=== PATIENT | female | born 1980 | race Caucasian/White ===

== ENCOUNTER 2023-12-10 13:36 | Emergency (ER) | payer MEDICARE, BC, MEDICAID, SELFPAY ==
[2023-12-10] VITALS (47 sets, daily range): BP systolic 76–101; BP diastolic 42–72; PULSE 107–119; RESP 22; TEMP 38.1–38.2; O2SAT 64–92; BMI 31.8
--- NOTE | 2023-12-10 14:09 | XR_ITS ---
Patient: VELVET ROY Facility:?[facility] Patient ID:?[id number] Site Patient ID:?[id number]. Site :?1980 Study:?XRay-Chest 1V-12/10/2023 2:51:51 PM Ordering Physician:?DR. MALLOY Final Report: INDICATION: Cough. COMPARISON: None available. TECHNIQUE: 1 view. FINDINGS: AP portable chest radiograph at 1443 hours. Lordotic positioning Medical Devices: Sternotomy wires. Metallic density medical transcription overlying the left atrium. Left-sided single lead subcutaneous implanted cardioverter- defibrillator. The tip of the lead overlies the superior vena cava Lung Volumes: Adequate inspiration. No significant atelectasis. Lungs: Bilateral asymmetrical, more extensive on the right compared to the left, perihilar airspace opacities. Pleura and Pleural spaces: No significant pleural effusion. No pneumothorax. Mediastinum: AP portable technique exaggerates the transverse dimension of the cardiac silhouette. Cardiomegaly is not excluded. Bony Thorax and Soft Tissues: No significant incidental findings. IMPRESSION: Bilateral asymmetrical, more extensive on the right compared to the left, perihilar airspace opacities. Differential diagnostic considerations include pneumonia in the correct clinical setting. Radiographic follow-up to document clearing is recommended in 6-8 weeks. Dictated by Hema Blount MD @ 12/10/2023 3:03:19 PM Signed by:?Hema Blount MD @12/10/2023 3:03:19 PM (Electronic Signature)
--- NOTE | 2023-12-10 14:12 | ED.GENADULT ---
HPI - General Adult General Chief complaint: Cough Stated complaint: oxygen levels low, cough Time Seen by Provider: 12/10/23 13:54 History of Present Illness HPI narrative: This 43-year-old female comes in with her father. She has down syndrome and does have a implantable cardiac defibrillator. She returned from [place] with her father a couple days ago and developed cough 2 days ago. She was noted to have a fever yesterday of 100.8? F. She does use CPAP and oxygen at night. She had a coughing fit last night and now has ecchymosis around her right eye. She is on warfarin and does not report any injury event. Her father thinks that it may have been something related to coughing with the CPAP machine in place. She arrives here with tachycardia, borderline fever, and hypoxia with oximetry around 70% on room air. She has cyanosis in her extremities but is functioning rather well despite this oximetry. Her father states that she does get peripheral cyanosis at times. She normally has oximetry in the mid 90s% but does use oxygen with her CPAP night. Related Data Home Medications Medication Instructions Recorded Confirmed ferrous sulfate 325 mg (65 mg 325 mg PO DAILY 12/10/23 12/10/23 iron) tablet (FeroSul) furosemide 20 mg tablet 20 mg PO QAM 12/10/23 12/10/23 selexipag 1,400 mcg tablet PO 12/10/23 (Uptravi) tadalafil (pulm. hypertension) 20 40 mg PO DAILY 12/10/23 12/10/23 mg tablet (pulmonary hypertension) (Adcirca) warfarin 3 mg tablet mg PO 12/10/23 Allergies Allergy/AdvReac Type Severity Reaction Status Date / Time No Known Drug Allergies Allergy Verified 12/10/23 13:48 Review of Systems Status of ROS: Reports: 10 or more systems reviewed and unremarkable except as noted in History and below Narrative: Constitutional: No weight gain or loss. Eyes: No discharge. No vision changes. HENT: No congestion, no sore throat, no ear pain. Cardiovascular: No palpitations. Chest discomfort when coughing. Respiratory: Cough with shortness of breath. Gastrointestinal: No abdominal pain, no vomiting, no diarrhea. Genitourinary: No dysuria, no hematuria. Musculoskeletal: Normal range of motion. Skin: No rashes, no pruritis. Neurological: No dizziness, weakness, sensory change, speech change. Endo/Heme/Allergies: Bruising around her right eye. On Coumadin. Pysch: no suicidality, no anxiety, no insomnia. All other systems reviewed and are negative. PFSH PFS Social History Smoking Status: Never smoker Do you use any of these nicotine containing products: None Second hand tobacco smoke exposure: No How often do you have a drink containing alcohol: never AUDIT-C Alcohol total score: 0 Non-prescribed substance use: denies use service: No Exam Narrative: Exam Narrative: Constitutional: Well-developed, well-nourished, no acute distress. HEENT: Ecchymosis around the right eye. No sign of skin injury here otherwise. Neck: Normal range of motion. Nontender. Supple. Heart: Regular. No murmurs. Normal rate. Intact distal pulses. Lungs: Decreased air movement. No chest discomfort. No wheezes, rhonchi, or rales. Abdomen: Normal bowel sounds. Nontender. No rebound tenderness. Genitalia: Deferred. Back: No midline tenderness. Normal range of motion. Extremities: Normal range of motion. No injury. Skin: Intact. No rash. Warm. No erythema or pallor. Neurologic: No altered sensation. No weakness. Alert and oriented. Psychiatric: No suicidality. No anxiety or depression. No insomnia. Nursing notes and vitals signs are reviewed. Const: Vital Signs, click to edit/add: Vital Signs - 24 hr 12/10/23 13:49 12/10/23 13:52 12/10/23 13:55 Temperature 100.5 F H Pulse Rate Pulse Rate [Pulse Oximeter] 116 H Respiratory Rate 22 Blood Pressure Blood Pressure [Le ft Upper Arm] 99/64 Pulse Oximetry 64 L 68 L 70 L Oxygen Delivery Me thod Oxygen Flow Rate Fraction of Inspir ed Oxygen 12/10/23 14:00 12/10/23 14:15 12/10/23 14:29 Temperature Pulse Rate Pulse Rate [Pulse Oximeter] Respiratory Rate Blood Pressure Blood Pressure [Le ft Upper Arm] Pulse Oximetry 68 L 84 L 90 Oxygen Delivery Me thod OxyMask OxyMask Oxygen Flow Rate 10 10 Fraction of Inspir ed Oxygen 12/10/23 14:30 12/10/23 14:45 12/10/23 15:00 Temperature Pulse Rate 117 H 113 H Pulse Rate [Pulse Oximeter] Respiratory Rate Blood Pressure 93/61 Blood Pressure [Le ft Upper Arm] Pulse Oximetry 88 85 L 85 L Oxygen Delivery Me thod OxyMask OxyMask OxyMask Oxygen Flow Rate 10 10 10 Fraction of Inspir ed Oxygen 12/10/23 15:01 12/10/23 15:02 12/10/23 15:15 Temperature Pulse Rate 114 H 114 H 119 H Pulse Rate [Pulse Oximeter] Respiratory Rate Blood Pressure 93/59 L Blood Pressure [Le ft Upper Arm] Pulse Oximetry 84 L 84 L 85 L Oxygen Delivery Me thod OxyMask OxyMask OxyMask Oxygen Flow Rate 10 10 10 Fraction of Inspir ed Oxygen 12/10/23 15:30 12/10/23 15:31 12/10/23 15:33 Temperature Pulse Rate 111 H 109 H Pulse Rate [Pulse Oximeter] Respiratory Rate Blood Pressure 94/54 L Blood Pressure [Le ft Upper Arm] Pulse Oximetry 86 L 87 L Oxygen Delivery Me thod OxyMask OxyMask OxyMask Oxygen Flow Rate 10 10 Fraction of Inspir ed Oxygen 10 Course Vital Signs Vital signs: Initial Vital Signs Temperature 100.5 F H 12/10/23 13:49 Temperature Source Temporal Artery Scan 12/10/23 13:49 Pulse Rate 116 H 12/10/23 13:49 Respiratory Rate 12/10/23 13:49 Blood Pressure 99/64 12/10/23 13:49 Blood Pressure Mean 75 12/10/23 13:49 Pulse Oximetry 64 L 12/10/23 13:49 Vital Signs Temperature 100.5 F H 12/10/23 13:49 Pulse Rate 116 H 12/10/23 13:49 Respiratory Rate 22 12/10/23 13:49 Blood Pressure 99/64 12/10/23 13:49 Pulse Oximetry 64 L 12/10/23 13:49 Temperature 100.5 F H 12/10/23 13:49 Pulse Rate 109 H 12/10/23 15:31 Respiratory Rate 12/10/23 13:49 Blood Pressure 94/54 L 12/10/23 15:31 Pulse Oximetry 87 L 12/10/23 15:31 Oxygen Delivery Method OxyMask 12/10/23 15:33 Oxygen Flow Rate 10 12/10/23 15:31 Fraction of Inspired Oxygen 10 12/10/23 15:33 Medications Administered Medications: Discontinued Medications Generic Name Dose Route Start Last Admin Trade Name Oleg PRN Reason Stop Dose Admin Sodium Chloride 1,000 mls @ 1,000 mls/hr 12/10/23 15:00 12/10/23 14:53 0.9 % Sodium Chloride 1000 Ml IV 12/10/23 15:59 500 mls/hr .Q1H DAMARIS Administration Medical Decision Making MDM Narrative Medical decision making narrative: This patient comes in with report of cough and fever with hypoxia. She arrives with oximetry at 64% on room air however she was rather functional. She did have peripheral cyanosis. She is typically on oxygen at night with CPAP. An IV was established and labs are acquired. Her VBGs return in normal range. She was on an OxyMask at 10 L and this brought up her oximetry into the upper 80s%. Chest x-ray does show evidence of bilateral pneumonia. Nasal pharyngeal swab is negative for viral studies. She does have an increased white count. Her INR is in therapeutic range. A lactate is obtained and returns at borderline at 2.0. The patient did receive a L of normal saline intravenously. After blood cultures were obtained she also received a g of Rocephin and 500 mg of azithromycin. I did speak with the hospitalist central control room operator regarding admission for this patient. Dr. Samaniego is planning to come in observe the patient in the ER and will make plans accordingly. Lab Data Labs: Lab Results 12/10/23 12/10/23 12/10/23 Range/Units 14:10 14:30 14:30 WBC 11.36 H (4.50-11.00) K/uL RBC 3.97 L (4.00-5.20) m/uL Hgb 12.8 (12.0-16.0) gm/dL Hct 39.2 (33.0-51.0) % MCV 99 (80-100) fL MCH 32 (26-34) pg MCHC 33 (32-36) gm/dL RDW Coeff of Leonard 14.7 (11.5-15.5) % Plt Count 182 (140-440) K/uL Neut % (Auto) 90.4 H (42.0-72.0) % Lymph % (Auto) 3.3 L (20-44) % Marion % (Auto) 5.8 (0.0-11.0) % Eos % (Auto) 0.0 (0.0-7.0) % Baso % (Auto) 0.1 (0.0-3.0) % Neut # (Auto) 10.30 H (1.7-7.0) K/uL Lymph # (Auto) 0.40 L (0.90-2.90) K/uL Marion # (Auto) 0.70 (0.00-0.90) K/UL Eos # (Auto) 0.00 (0.00-0.50) K/uL Baso # (Auto) 0.00 (0.00-0.30) K/uL Abs Immat Gran (auto) 0.00 (0.00-0.30) K/uL Imm/Tot Granulo (auto) 0.4 % INR 2.77 H (0.91-1.10) VBG pH 7.41 (7.32-7.43) VBG pCO2 40 (40-50) mmHG VBG pO2 31.8 (25-47) mmHG VBG HCO3 26 (21-28) mmol/L Sodium 136 (135-149) mmol/L Potassium 4.0 (3.6-5.1) mmol/L Chloride 101 (96-114) mmol/L Carbon Dioxide 25 (20-32) mmol/L Anion Gap 10 (7-15) mEq/L BUN 25 H (5-24) mg/dL Creatinine 1.0 (0.5-1.5) mg/dL Estimated Creat Clear 71.01 Estimated GFR 72 ml/min Glucose 133 H (60-115) mg/dL Lactate 2.0 H (0.5-1.9) mmol/L Calcium 9.1 (8.4-10.6) mg/dL NT-Pro-B Natriuret Pep 77511 Cancelled pg/mL SARS-CoV-2 (PCR) Negative SARS-CoV-2 (Negative) Influenza Type A (PCR) Negative PCR FLU A (Negative) Influenza Type B (PCR) Negative PCR FLU B (Negative) RSV (PCR) Negative PCR RSV (Negative) POC Troponin I 0.00 L (0.01-0.04) ng/ml ECG Data Attestation: I personally reviewed and interpreted this ECG as follows: Interpretation: Sinus tachycardia. Rate is 116 beats per minute. Right bundle-branch block. There are no specific ST or T-wave abnormalities. Discharge Plan Discharge Clinical Impression: Pneumonia Patient Disposition: Admitted As Inpatient Condition: Unchanged Prescriptions: No Action warfarin 3 mg tablet PO ferrous sulfate [FeroSul] 325 mg (65 mg iron) tablet 325 mg PO DAILY furosemide 20 mg tablet 20 mg PO QAM Uptravi 1,400 mcg tablet PO tadalafil (pulm. hypertension) [Adcirca] 20 mg tablet 40 mg PO DAILY Follow Up/Referrals: Essie Greco MD [Primary Care Provider] -
[2023-12-10 14:40] LABS: HCO3 VBG 26 mmol/L (21-28); PCO2 VBG 40 mmHG (40-50); PO2 VBG 31.8 mmHG (25-47); pH VBG 7.41 (7.32-7.43)
[2023-12-10] MEDS: 0.9 % SODIUM CHLORIDE 1000 ml 1,000 ML 500 ML IV (14:53)
[2023-12-10 14:55] LABS: Chloride* 101 mmol/L (96-114); Sodium* 136 mmol/L (135-149)
[2023-12-10 14:56] LABS: INR 2.77 (0.91-1.10); Prothrombin Time 31.4 Seconds
[2023-12-10 14:58] LABS: Anion Gap 10 mEq/L (7-15); Blood Urea Nitrogen* 25 mg/dL (5-24); Carbon Dioxide* 25 mmol/L (20-32); Est. Creatinine Clearance* 71.01; Estimated Glomerular Filt Rate 72 ml/min; Glucose* 133 mg/dL (60-115)
[2023-12-10 14:59] LABS: Calcium* 9.1 mg/dL (8.4-10.6)
[2023-12-10 15:01] LABS: Basophils Percent Auto 0.1 % (0.0-3.0); Hematocrit 39.2 % (33.0-51.0); Hemoglobin* 12.8 gm/dL (12.0-16.0); Immature Granulocytes Pct Auto 0.4 %; Lymphocytes Percent Auto 3.3 % (20-44); Mean Corpuscular HGB Conc 33 gm/dL (32-36); Mean Corpuscular Hemoglobin 32 pg (26-34); Mean Corpuscular Volume 99 fL (80-100); Monocytes Percent Auto 5.8 % (0.0-11.0); Neutrophils Percent Auto 90.4 % (42.0-72.0); Platelet Count* 182 K/uL (140-440); RDW Coefficient of Variation % 14.7 % (11.5-15.5); Red Blood Count 3.97 m/uL (4.00-5.20); White Blood Count* 11.36 K/uL (4.50-11.00)
[2023-12-10 15:03] LABS: Slide Review Reflex No
[2023-12-10 15:11] LABS: NT Pro B Type NatriureticPept* 12300 pg/mL
[2023-12-10 15:26] LABS: PCR FLU A Negative PCR FLU A (Negative); PCR FLU B Negative PCR FLU B (Negative); PCR RSV Negative PCR RSV (Negative); SARS PCR* Negative SARS-CoV-2 (Negative)
--- NOTE | 2023-12-10 15:34 | RESP.RT ---
Attempted ABG, on 10L oxymask. There was an initial flash of blood in syringe, but it stopped, sample not collected. There is a VBG. PT spo2 87% On arrival saturation via head probe was 66%, on RA with good waveform. Despite this saturation, pt does not appear in any respiratory distress. Pt's father reports this is what it was at home. He did bring her here on here home oxygen. IF pt is admitted here, asked Father to bring her CPAP machine here for use.
[2023-12-10] MEDS: cefTRIAXone 1 GM in 0.9 % SODIUM CHLORIDE Mini-bag 100 ML IVPB (16:06)
[2023-12-10] MEDS: AZITHROMYCIN 100 MG/ML inj 500 MG IVPB (16:40)
[2023-12-10 17:35] LABS: Appearance Urine Cloudy (Clear); Bilirubin Urine Negative (Negative); Blood Urine 2+ (Negative); Color Urine Yellow (Yellow); Glucose Urine Negative (Negative); Ketones Urine Trace (Negative); Leukocyte Esterase Urine Negative (Negative); Nitrite Urine Negative (Negative); Protein Urine 1+ (Negative); Urobilinogen Urine 0.2 (0.2-1.0)
[2023-12-10] MEDS: ACETAMINOPHEN 325 MG TABLET 650 MG PO (17:54)
[2023-12-10 18:17] LABS: Bacteria Urine Moderate; Fine Granular Casts Urine Few; RBC Urine 0-2 (0-2); Squamous Epithelial Cell Urine Few (None-Few)
[2023-12-10] MEDS: LACTATED RINGERS 1000 ML 1,000 ML IV (19:27)
== END 2023-12-10 19:49 | disposition admitted as inpatient to this hospital (09) ==
PROVIDERS: Emergency Medicine Emergency Medical Services; Emergency Provider Student in an Organized Health Care Education/Training Program; PCP Family Medicine
DX: J18.9 Pneumonia, unspecified organism (principal)
CPT/HCPCS: 36415; 36600; 71045; 80048; 81001; 82803; 83605; 83880; 84484; 85025; 85610; 87040; 87086; 87631; 93005; 96365; 96375; 99284; 99285; 99291; A9270; J0456; J0696; J7030; J7120

== ENCOUNTER 2023-12-10 19:48 | Outpatient (CLI) | payer MEDICARE, BC, MEDICAID, SELFPAY | END 2023-12-10 19:49 | disposition home or self-care (01) | LOC: AMB 12-14 08:11 | PROVIDERS: PCP Family Medicine; Visit Provider Student in an Organized Health Care Education/Training Program | DX: J18.9 Pneumonia, unspecified organism (principal) | CPT/HCPCS: A0425; A0427 ==

== ENCOUNTER 2024-01-13 14:38 | Outpatient (CLI) | payer MEDICARE, BC, MEDICAID, SELFPAY | END 2024-01-13 14:39 | disposition home or self-care (01) | LOC: AMB 01-16 07:25 | PROVIDERS: PCP Family Medicine; Visit Provider Emergency Medicine Emergency Medical Services | DX: R06.09 Other forms of dyspnea (principal) | CPT/HCPCS: A0425; A0427 ==

== ENCOUNTER 2024-01-13 15:21 | Emergency (ER) | payer MEDICARE, BC, MEDICAID, SELFPAY ==
[2024-01-13] VITALS (19 sets, daily range): BP systolic 99–105; BP diastolic 55–75; PULSE 90–113; RESP 16–20; TEMP 37.7; O2SAT 86–92; BMI 30.3
--- NOTE | 2024-01-13 16:19 | XR_ITS ---
Patient: VELVET ROY Facility:?[facility] Patient ID:?[id number] Site Patient ID:?[id number]. Site :?1980 Study:?XRay-Chest 2V-01/13/2024 4:53:03 PM Ordering Physician:YOHANA Final Report: INDICATION: Shortness of breath. TECHNIQUE: Chest 2 views. COMPARISON: 12/10/2023. FINDINGS: No pneumothorax or pleural effusion. Lungs are clear. Stable cardiac and mediastinal contours with prior median sternotomy and vascular stent. Subcutaneous ICD appears unchanged. Upper abdomen and osseous structures as imaged show no acute abnormality. IMPRESSION: No radiographic evidence of pneumonia. Dictated by Steve Jorgensen MD @ 01/13/2024 5:22:00 PM Signed by:?Steve Jorgensen MD @01/13/2024 5:22:00 PM (Electronic Signature)
[2024-01-13 16:34] LABS: Basophils Absolute Auto 0.01 K/uL (0.00-0.30); Basophils Percent Auto 0.2 % (0.0-3.0); Eosinophils Absolute Auto 0.07 K/uL (0.00-0.50); Eosinophils Percent Auto 1.3 % (0.0-7.0); Hematocrit 40.7 % (33.0-51.0); Immature Granulocytes Abs Auto 0.04 K/uL (0.00-0.30); Immature Granulocytes Pct Auto 0.7 %; Lymphocytes Percent Auto 16.6 % (20-44); Mean Corpuscular HGB Conc 32 gm/dL (32-36); Mean Corpuscular Hemoglobin 33 pg (26-34); Mean Corpuscular Volume 102 fL (80-100); Monocytes Percent Auto 7.9 % (0.0-11.0); Neutrophils Percent Auto 73.3 % (42.0-72.0); Platelet Count* 143 K/uL (140-440); RDW Coefficient of Variation % 19.7 % (11.5-15.5); Red Blood Count 3.98 m/uL (4.00-5.20); White Blood Count* 5.47 K/uL (4.50-11.00)
[2024-01-13 16:47] LABS: Slide Review Reflex No
[2024-01-13 17:47] LABS: PCR FLU A Negative PCR FLU A (Negative); PCR FLU B Negative PCR FLU B (Negative); PCR RSV Negative PCR RSV (Negative); SARS PCR* Negative SARS-CoV-2 (Negative)
[2024-01-13 17:56] LABS: Chloride* 107 mmol/L (96-114); Potassium* 3.6 mmol/L (3.6-5.1); Sodium* 139 mmol/L (135-149)
[2024-01-13 17:57] LABS: INR 2.98 (0.91-1.10); Prothrombin Time 33.3 Seconds
[2024-01-13 17:58] LABS: Creatinine* 0.8 mg/dL (0.5-1.5); Estimated Glomerular Filt Rate 94 ml/min; Partial Thromboplastin Time* 73 Seconds (23-33)
[2024-01-13 17:59] LABS: Anion Gap 7 mEq/L (7-15); Blood Urea Nitrogen* 17 mg/dL (5-24); Carbon Dioxide* 25 mmol/L (20-32); D Dimer Quantitative* 0.32 ug/ml (0.00-0.50); Glucose* 115 mg/dL (60-115)
[2024-01-13 18:10] LABS: NT Pro B Type NatriureticPept* 2210 pg/mL
--- NOTE | 2024-01-13 18:26 | ED.SOB ---
HPI - SOB/Dyspnea General Chief Complaint: Shortness of Breath/Dyspnea Stated Complaint: Low O2 Time Seen by Provider: 01/13/24 15:27 History of Present Illness HPI Narrative: Patient here via EMS with no current complaint however is has been noted that she desats with minimal activity. Patient was hospitalized with pneumonia a while back and has a significant cardiac history . Services Manager suggested she get an EKG completed. Patient is a very nice lady who presents here with EMS for shortness of breath, she actually tells me she does not feel short of breath and does not feel anything out of the nor normal. She gets up and walks around she says normally and is doing well, she was recently hospitalized up at [facility] for pneumonia, recovered from that was on prednisone she just came off her prednisone. A couple days ago, it seems like this is related to the prednisone being stopped. Her father who is with her, says that he thinks the same thing, she normally saturates in the low to mid 90% range. She does have a history of pulmonary hypertension, and does desaturate somewhat when she walks around but usually not to the degree she currently is at he says. She does use oxygen 2 L at nighttime to sleep. No history of coughing, vomiting, chest pain, leg swelling, previous history of DVTs. She does have a history of Down syndrome, and has had her aortic valve replaced, is on chronic lifetime anticoagulation in the last time they had this checked a week ago, it was in the normal range. The they called the staff anesthetist a recommended that she get seen in the emergency room. MD elicited complaint: shortness of breath Known history of: recurrent pneumonia Associated symptoms: denies other symptoms Treatment prior to arrival: none Related Data Home oxygen amount: 2 liters Home Medications Medication Instructions Recorded Confirmed ferrous sulfate 325 mg (65 mg 325 mg PO DAILY 12/10/23 12/10/23 iron) tablet (FeroSul) furosemide 20 mg tablet 20 mg PO QAM 12/10/23 12/10/23 selexipag 1,400 mcg tablet PO 12/10/23 (Uptravi) tadalafil (pulm. hypertension) 20 40 mg PO DAILY 12/10/23 12/10/23 mg tablet (pulmonary hypertension) (Adcirca) warfarin 3 mg tablet mg PO 12/10/23 Allergies Allergy/AdvReac Type Severity Reaction Status Date / Time No Known Drug Allergies Allergy Verified 12/10/23 13:48 Review of Systems Status of ROS: Reports: 10 or more systems reviewed and unremarkable except as noted in History and below [facility] Social History Smoking Status: Never smoker Do you use any of these nicotine containing products: None Second hand tobacco smoke exposure: No How often do you have a drink containing alcohol: never AUDIT-C Alcohol total score: 0 Non-prescribed substance use: denies use service: No Exam Narrative: Exam Narrative: I see her in room 8 she is apparent in no apparent distress, sats are in the low 90% range. No audible wheezing is noted, speaking to me in full sentences bright cheery. Her pupils equal round reactive to light, TMs are normal oropharynx is normal. Neck is supple full range of motion DIS she does occasionally have a couple wheezes in her lungs with nothing overly bad, no crackles are noted, she has a blowing systolic murmur, over the left side, with radiation to her left axilla. No thrill is associated with this, JVP is flat, abdomen is soft and obese there is no guarding no organomegaly no edema of the lower extremity she moves all extremities independently and well. Const: Vital Signs, click to edit/add: Vital Signs - 24 hr 01/13/24 15:32 01/13/24 15:36 01/13/24 15:45 Temperature 99.8 F H Pulse Rate 101 H 97 Pulse Rate [Pulse Oximeter] 113 H Respiratory Rate 20 Blood Pressure Blood Pressure [Le ft Upper Arm] 105/55 L Pulse Oximetry 90 89 91 Oxygen Delivery Me thod Room Air 01/13/24 16:00 01/13/24 16:01 01/13/24 16:15 Temperature Pulse Rate 97 100 98 Pulse Rate [Pulse Oximeter] Respiratory Rate Blood Pressure 99/75 Blood Pressure [Le ft Upper Arm] Pulse Oximetry 88 87 L 87 L Oxygen Delivery Me thod 01/13/24 16:18 01/13/24 16:30 01/13/24 16:31 Temperature Pulse Rate 92 96 Pulse Rate [Pulse Oximeter] Respiratory Rate Blood Pressure 101/67 Blood Pressure [Le ft Upper Arm] Pulse Oximetry 88 88 86 L Oxygen Delivery Me thod 01/13/24 16:45 01/13/24 17:00 01/13/24 17:01 Temperature Pulse Rate 95 91 90 Pulse Rate [Pulse Oximeter] Respiratory Rate Blood Pressure 102/69 Blood Pressure [Le ft Upper Arm] Pulse Oximetry 90 88 91 Oxygen Delivery Me thod 01/13/24 17:15 01/13/24 17:30 Temperature Pulse Rate 103 H 97 Pulse Rate [Pulse Oximeter] Respiratory Rate Blood Pressure Blood Pressure [Le ft Upper Arm] Pulse Oximetry 89 91 Oxygen Delivery Me thod Documenting provider has reviewed patient's vital signs: yes Course Vital Signs Vital signs: Initial Vital Signs Temperature 99.8 F H 01/13/24 15:32 Temperature Source Temporal Artery Scan 01/13/24 15:32 Pulse Rate 113 H 01/13/24 15:32 Respiratory Rate 20 01/13/24 15:32 Blood Pressure 105/55 L 01/13/24 15:32 Blood Pressure Mean 71 01/13/24 15:32 Pulse Oximetry 90 01/13/24 15:32 Oxygen Delivery Method Room Air 01/13/24 15:32 Vital Signs Temperature 99.8 F H 01/13/24 15:32 Pulse Rate 113 H 01/13/24 15:32 Respiratory Rate 20 01/13/24 15:32 Blood Pressure 105/55 L 01/13/24 15:32 Pulse Oximetry 90 01/13/24 15:32 Oxygen Delivery Method Room Air 01/13/24 15:32 Temperature 99.8 F H 01/13/24 15:32 Pulse Rate 97 01/13/24 17:30 Respiratory Rate 20 01/13/24 15:32 Blood Pressure 102/69 01/13/24 17:01 Pulse Oximetry 91 01/13/24 17:30 Oxygen Delivery Method Room Air 01/13/24 15:32 MDM - SOB/Dyspnea MDM Narrative Medical decision making narrative: Life-threatening differential diagnosis includes occluded COPD exacerbation, pulmonary edema, acute coronary syndromes, pulmonary embolism, pneumonia, and pneumothorax. Other differential diagnosis considerations include asthma, bronchitis as well as other etiologies Her D-dimer was normal, she is anticoagulated well at 2.98. Her troponin is negative, and her EKG looks unchanged with her right bundle-branch block with the some mild sinus tachycardia at 102. Chest x-ray was interpreted as normal, laboratory work was reassuring her BNP was slightly elevated at 2 210 but better than when she was here last time at 13,000 and transferred to [place]. I think this realistically is related to coming off the prednisone she says she feels wonderful on this. I do not think she is aspirating I do not think there is any significant heart issues with associated with this we will give her a tapering dose of prednisone have her follow-up, she obviously has some issues, with her known pulmonary hypertension heart issues. Recent pneumonia, and will have to be watched closely and they feel comfortable with this. Medical Records Attestation: I reviewed the patient's medical records. Lab Data Attestation: I reviewed the patient's lab results. Labs: Lab Results 01/13/24 01/13/24 01/13/24 Range/Units 16:15 16:45 17:35 WBC 5.47 (4.50-11.00) K/uL RBC 3.98 L (4.00-5.20) m/uL Hgb 13.0 (12.0-16.0) gm/dL Hct 40.7 (33.0-51.0) % MCV 102 H (80-100) fL MCH 33 (26-34) pg MCHC 32 (32-36) gm/dL RDW Coeff of Leonard 19.7 H (11.5-15.5) % Plt Count 143 (140-440) K/uL Neut % (Auto) 73.3 H (42.0-72.0) % Lymph % (Auto) 16.6 L (20-44) % Ritchie % (Auto) 7.9 (0.0-11.0) % Eos % (Auto) 1.3 (0.0-7.0) % Baso % (Auto) 0.2 (0.0-3.0) % Neut # (Auto) 4.00 (1.7-7.0) K/uL Lymph # (Auto) 0.90 (0.90-2.90) K/uL Ritchie # (Auto) 0.40 (0.00-0.90) K/UL Eos # (Auto) 0.07 (0.00-0.50) K/uL Baso # (Auto) 0.01 (0.00-0.30) K/uL Abs Immat Gran (auto) 0.04 (0.00-0.30) K/uL Imm/Tot Granulo (auto) 0.7 % INR 2.98 H (0.91-1.10) APTT 73 H (23-33) Seconds D-Dimer Quant (PE/DVT) 0.32 (0.00-0.50) ug/ml Sodium Cancelled 139 Potassium Cancelled 3.6 Chloride Cancelled 107 Carbon Dioxide Cancelled 25 Anion Gap Cancelled 7 BUN Cancelled 17 Creatinine Cancelled 0.8 Estimated Creat Clear Cancelled 84.60 Estimated GFR Cancelled 94 Glucose Cancelled 115 Calcium Cancelled 9.0 NT-Pro-B Natriuret Pep 2210 pg/mL SARS-CoV-2 (PCR) Negative SARS-CoV-2 (Negative) Influenza Type A (PCR) Negative PCR FLU A (Negative) Influenza Type B (PCR) Negative PCR FLU B (Negative) RSV (PCR) Negative PCR RSV (Negative) POC Troponin I 0.00 L (0.01-0.04) ng/ml Imaging Data Chest x-ray: Attestation: I have reviewed the pertinent imaging results. Radiologist's impression: Patient: VELVET ROY Facility:?[facility] Patient ID:?[id number] Site Patient ID:?[id number]. Site :?1980 Study:?XRay-Chest 2V-01/13/2024 4:53:03 PM Ordering Physician:YOHANA Final Report: INDICATION: Shortness of breath. TECHNIQUE: Chest 2 views. COMPARISON: 12/10/2023. FINDINGS: No pneumothorax or pleural effusion. Lungs are clear. Stable cardiac and mediastinal contours with prior median sternotomy and vascular stent. Subcutaneous ICD appears unchanged. Upper abdomen and osseous structures as imaged show no acute abnormality. IMPRESSION: No radiographic evidence of pneumonia. Dictated by Steve Jorgensen MD @ 01/13/2024 5:22:00 PM (Electronic Signature) ECG Data Attestation: I personally reviewed and interpreted this ECG as follows: Prior ECG tracings: available for review Interpretation: Sinus tachycardia right bundle-branch block left anterior fascicular block, abnormal EKG but unchanged from previous Discharge Plan Discharge Clinical Impression: History of bacterial pneumonia, Shortness of breath, Pulmonary hypertension, History of reactive airway disease Patient Disposition: Home w/ Parent or Adult Condition: Stable Instructions: Asthma (ED), Pulmonary Arterial Hypertension (ED), Wheezing (ED), How Your Lungs Work (ED) Additional Instructions: We will allow you to go home, we will do a tapering dose of prednisone over the next few days, but close follow-up will be needed with your staff anesthetist and also rn review. I do agree I think this is more related to lungs as opposed to related to your heart. Increasing shortness of breath low saturations, or other issues please come back and be seen, very now her chest x-ray EKG and other testing all looks reasonable. Tapering prednsione for 10 days given via instymeds Activity Level: Light activity Prescriptions: No Action warfarin 3 mg tablet PO ferrous sulfate [FeroSul] 325 mg (65 mg iron) tablet 325 mg PO DAILY furosemide 20 mg tablet 20 mg PO QAM Uptravi 1,400 mcg tablet PO tadalafil (pulm. hypertension) [Adcirca] 20 mg tablet 40 mg PO DAILY Follow Up/Referrals: Essie Greco MD [Primary Care Provider] - Stand Alone Forms: [employer] Instructions
== END 2024-01-13 18:37 | disposition home or self-care (01) ==
PROVIDERS: Emergency Provider Family Medicine; PCP Family Medicine
DX: R06.02 Shortness of breath (principal); I27.20 Pulmonary hypertension, unspecified
CPT/HCPCS: 36415; 71046; 80048; 83880; 84484; 85025; 85379; 85610; 85730; 87631; 93005; 94761; 96374; 99284; 99285

== ENCOUNTER 2024-05-13 08:06 | Outpatient (CLI) | payer MEDICARE, BC, MEDICAID, SELFPAY ==
--- NOTE | 2024-05-13 08:00 | CRLHL7_ITS ---
For Patients: As a result of the Century Cures Act, medical imaging exams and procedure reports are released immediately into your electronic medical record. You may view this report before your referring provider. If you have questions, please contact your health care provider. INDICATION: Recurrent pneumonia TECHNIQUE: CT chest without contrast. COMPARISON: 09/24/[address] FINDINGS: Lungs and pleura: Shallow inspiration and associated atelectasis. Resolution of right upper lobe consolidation and bilateral pleural effusion since the prior exam. No suspicious nodule, mass, or consolidation. Heart and vasculature: Cardiomegaly. Interval placement of pulmonary artery stent graft. External AICD with generator pack in the left chest and lead in the anterior midline subcutaneous tissues. Lymph nodes/mediastinum: No mediastinal, hilar, or axillary adenopathy. Chest wall: AICD as described above. Upper abdomen: Residual barium contrast in the colon. Bones: Sternotomy. Midthoracic spondylosis. IMPRESSION: 1. No acute findings. 2. Interval placement of pulmonary artery stent graft and external AICD. 3. Cardiomegaly. Please note that all CT scans at this facility use dose modulation, iterative reconstruction, and/or weight-based dosing when appropriate to reduce radiation dose to as low as reasonably achievable. Dictated by Raul Echols MD @ 05/13/2024 9:24:02 AM (Electronically Signed)
== END 2024-05-13 08:07 | disposition home or self-care (01) ==
LOC: CT 08:11
PROVIDERS: PCP Family Medicine; Visit Provider Internal Medicine Pulmonary Disease
DX: J18.9 Pneumonia, unspecified organism (principal); I51.7 Cardiomegaly
CPT/HCPCS: 71250

== ENCOUNTER 2025-03-02 21:22 | Outpatient (CLI) | payer MEDICARE, MEDICAID, SELFPAY ==
--- OUTSIDE RECORDS SUMMARY | 2025-03-03 00:58 | XMS_ITS ---
Author Name Interface, [id number] lity Address [address] [place], [place] [id number] [facility] Address [facility] [address] [address] Allergies and Adverse Reactions Plan Reason for Visit Encounters Medications Problems
--- OUTSIDE RECORDS SUMMARY | 2025-03-03 00:58 | XMS_ITS | CCD ---
Author Name Interface, [id number] lity Address [address] [facility] [address] [address] Organization [facility] Address [address] [facility] [address] [address] Care Team Providers Care Pharmacy Manager Name Role Phone Nat CHU, Lauren Marroquin able Allergies and Adverse Reactions Medication/Group Name Reaction Severity Date No known allergies Reason for Visit OV 20 MIN Medications Date Name Route Dose Frequency Instructions Start Date End Date Status Cyanocobalamin Oral PO 1.0 TABLET( S) as directed active Amiodarone Oral PO 2.0 TABLET( S) daily except Sundays active Warfarin Oral PO 1.0 TABLET( S) daily 2 tabs on Mon, Th, and Sat and 1.5 mg tab on other days active Tadalafil Oral PO 1.0 TABLET( S) daily active Loteprednol Ophthalmic Drops 0.5 % O.U. 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
--- OUTSIDE RECORDS SUMMARY | 2025-03-03 00:58 | XMS_ITS | Clinical Summary ---
Author Organization [facility] Address [facility] [place] [address] Care Team Providers Care Associate Director Regulatory Affairs Name Role Phone Essie Greco MD Primary Care Provider Essie Greco MD Unavailable [phone] Domingo Dudley MD Unavailable [phone] Nurses, Advanced Heart Failure Unavailable + Rodolfo Joyce MD Unavailable Allergies No known active allergies Medications fluticasone (50 mcg per actuation) nasal solution (FLONASE) Inhale 1 [place] in the nostril(s) once daily if needed for Other (Specify) (allergic rhinitis). Active cholecalciferol, Vitamin D3, (Vitamin D-3) 2,000 unit tabletIndications:[facility], subsequent Take 1 Tablet (2,000 units) by mouth once daily. 90 Tablet 3 06/21/20 21 Active artificial tears, peg 400-propylene glycol, (Systane) 0.4-0.3 % ophthalmic dropperette Place 1-2 Drops into both eyes every hour if needed for Dry Eyes. Active dorzolamide-timoloL (Cosopt) 2-0.5 % ophthalmic solution Place 1 Drop into right eye two times daily. Active oxygen-air delivery systems (HOME OXYGEN)Indications:H ypoxia Pulse dose-conservin g device. Liters per minute: 2 per nasal cannula. Frequency of use: Continuous with any activity with portability.;. Length of need: 99 Months. 1 Each 01/17/20 24 Active furosemide (LASIX) 20 mg tabletIndications:Pu lmonary hypertension (HC) TAKE ONE TABLET BY MOUTH EVERY MORNING 90 Tablet 3 02/17/20 24 Active triamcinolone 0.1 % ointmentIndications: Rash Apply topically to affected area(s) three times daily. 80 g 05/08/20 24 Active CPAPIndications:ANTONIETTA (obstructive sleep apnea) CPAP machine for home use at pressure 4-7 cmw, full face mask x1/3month with a full face cushion x1/mo 1 Each 11 06/15/20 24 Active prednisoLONE acetate 1% ophthalmic (ECONOPRED PLUS, PRED FORTE, OMNIPRED) suspension Place 1 Drop into left eye once daily. I drop in Right eye twice daily 06/29/20 24 Active tacrolimus (PROTOPIC) 0.03 % ointment APPLY 1/4 INCH TO RIGHT EYE AT BEDTIME. 07/16/20 24 Active Uptravi 1,400 mcg tabletIndications:Pr imary pulmonary hypertension (HC) Take 1 tablet twice daily. 60 Tablet 11 09/10/19 25 Active albuterol HFA (PRO-AIR; VENTOLIN; PROVENTIL) 90 mcg/actuation inhalerIndications:W heezing Inhale 1-2 Puffs by mouth every 4 hours if needed for Shortness Of Breath or Wheezing. 3 Each 3 10/19/19 25 Active inhalational spacing deviceIndications:Wh eezing For home use. 1 Each 10/19/19 25 Active tadalafiL (pulm. hypertension) 20 mg tabIndications:Prima ry pulmonary hypertension (HC) TAKE 2 TABLETS BY MOUTH 1 TIME A DAY 60 Tablet 11 01/12/20 25 Active warfarin 3 mg tabletIndications:S/ P atrioventricular septal defect repair,Anticoagulati on monitoring, INR range 2-3,Intracardiac thrombosis, not elsewhere classified Take by mouth 9 mg (3 mg x 3) every Mon; 6 mg (3 mg x 2) all other days in the evening OR as directed 195 Tablet 01/15/20 25 Active oxygen-air delivery systemsIndications:A cute respiratory failure with hypoxia (HC) Oxygen for home use. Liters per minute: 2 per nasal cannula. Frequency of use: With activity AND nocturnal;. Length of need: 99 Months. Patient needs updated oxygen concentrator. 1 Each 01/27/20 25 Active overnight oximetryIndications: Nocturnal hypoxemia For home use. On Room Air no; On Oxygen yes if yes @2LPM; On CPAP yes; On BiPAP no 1 Each 01/28/20 25 Active Active Problems Problem Noted Date Diagnosed Date IUD (intrauterine device) in place 06/19/2024 Overview (06/19/2024): 02/12/24 Mirena IUD inserted at the time of hysteroscopy, polypectomy, myomectomy, and D&C. History of bacterial pneumonia 06/19/2024 History of reactive airway disease 06/19/2024 Congenital Medicine Program 03/27/2024 Abnormal uterine bleeding 02/09/2024 Multifocal pneumonia 12/26/2023 Stage 3 chronic kidney disease 12/26/2023 Complex care coordination 12/23/2023 Overview (12/23/2023): This patient is enrolled in the Congenital Medicine Program at [facility]. Please contact occupational medicine specialist [facility] provider regarding potential admissions. 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 05/01/2023 Right dominant AV canal, AVS D (atrioventricular septal defect) 09/27/2021 Nonrheumatic pulmonary valve insufficiency 09/20 Anemia 11/24/2018 Pneumonia 11/19/2018 ICD (implantable cardioverter-defibrillator) in place 05/23/2017 Hypoxia 12/13/2015 Pulmonary hypertension 12/12/2015 ANTONIETTA 10/25/15 AHI-23 10/31/2015 Anticoagulation monitoring, INR range 2-3 2015 Intracardiac thrombosis, not elsewhere classifie d 09/10/2015 S/P atrioventricular septal defect repair 2014 V-tach 09/04/2015 Overview (12/13/2015): -S/P subcutaneous ICD Ventricular bigeminy 09/04/2015 Bifascicular block 09/04/2015 Nausea and vomiting 09/04/2015 History of corneal transplant 09/04/2015 Pleural effusion, right 09/04/2015 Well adult exam 07/29/2015 Overview (07/29/2015): No current need for Pap smear BMI 33.0-33.9,adult 01/06/2010 Vitamin D deficiency 12/31/2009 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 Decreased vision 11/10/2008 Overview (12/26/2009): Secondary to keratoconus Down's syndrome 04/22/2007 Unspecified intellectual disabilities 04/22/2007 Unspecified congenital anomaly of heart 04/22/20 07 Overview (11/10/2008): Complete av canal repair 1983, residual mitral and tricuspid valve insufficiency, mild, and mild subaortic obstruction due to mitral valve apparatus Unspecified sinusitis (chronic) 04/22/2007 Resolved Problems Problem Noted Date Diagnosed Date Resolved Date Fever 12/11/2023 12/15/2023 Acute respiratory failure with hypoxia 11/19/2018 09/27/2021 SAJAN (acute kidney injury) 09/04/2015 Encounters Date Type Department Care Team Description 02/24/2025 9:30 AM CDT Office Visit [facility] [address] [place] [address] Domingo Dudley MD CV Pulm Htn Est (Appointment Note//F/U VISIT.ECHO DONE 01/27. LABS DONE 1 WK PRIOR AT LOC[facility].//) 02/23/2025 Travel 02/22/2025 2:45 PM CDT - 02/22/2025 11:59 PM CDT Hospital Encounter [facility] [address] [place] [address] [place], Domingo Lawson, MD Chanelle, Gloria, RDCS, RVT Pulmonary hypertension (HC); S/P atrioventricular septal defect repair; S/P transcatheter replacement of pulmonary valve; AV canal (HC) 02/22/2025 2:30 PM CDT Orders Only [facility] [address] [place] [address] Lab 02/22/2025 Anticoagulation (warfarin) [facility] [address] [place] [address] 1, [facility] Anticoagulation 02/22/2025 Travel 02/11/2025 Orders Only [facility] [address] [place] [phone] Domingo Dudley MD <No scans attached> 01/26/2025 Telephone [facility] [address] [place] [address] Essie Greco MD Medication Management (oxygen-air delivery systems) 01/19/2025 Orders Only [facility] Scanner 1 scan: (1-Ord) RCM 01/13/2025 Refill [facility] [address] [place] [address] Essie Greco MD Refill Request (Warfarin) 01/11/2025 Refill [facility] [address] [place] [phone] Domingo Dudley MD Refill Request (Tadalafil (Pulm. Hypertension)) 12/25/2024 Orders Only [facility] Scanner 1 scan: (1-Ord) [facility] 12/22/2024 Telephone [facility] [address] [place] [address] Essie Greco MD Anticoagulation (Annual re-enrollment /) 12/21/2024 Anticoagulation (warfarin) [facility] [address] [place] [address] 1, [facility] Anticoagulation 12/18/2024 3:45 PM CDT Orders Only [facility] [address] [place] [address] Lab, [place] [facility] 12/18/2024 Travel 12/15/2024 Telephone [facility] [address] [facility] [address] [place] [address] Domingo Dudley MD Cardiology Appointment from Last 3 Months Immunizations Immunization Administration Dates Next Due AMB Influenza RIV4 (Age 18+ Years) PF (Flu Clinic Only) 07/10/2018 AMB Influenza, IIV3 (Age >=3 years)(Flu Clinic Only) 07/09/2013,06/09/2012,07/06/2011,08/09,07/19/2008 AMB Influenza, IIV4 PF (=>6 mos Flulaval,Fluzone Fluarix)(Flu Clinic Only) 07/26/2014 COVID-19 VACCINE SPIKEVAX (M ODERNA 50MCG/0.5ML) 12YO+ PFS 06/03/2023 COVID-19 vaccine (Moderna 100mcg/0.5mL) PF, MDV 01/25/2022,07/10/2021,11/02/2020,10/05 COVID-19 vaccine (Pfizer-Bio NTech 30mcg/0.3mL) 12YO+ BIVALENT PF, MDV 06/06/2022 DTaP 02/16/1981 Hepatitis A (Adult) 12/28/2013,02/14/2009 Hepatitis B (Adult) 01/29/2014,12/28/20132013 INFLUENZA, IIV3 PF (AGE >= 6 MO) 05/08/2024 Influenza, IIV3 (Age 6-35 mos) 07/06/2011 Influenza, IIV3 (Age >=3 years) 08/19/2006,09/05 Influenza, IIV4 05/17/2022,,05/19/2020,06/24,08/13/2017,07/16/2016,07/29/2015 Influenza,CCIIV4 PRESERV FREE 06/03/2023 MMR 05/09/1994 Pneumococcal Conj 20-valent (Prevnar 20) 05/17/2022 Pneumococcal Poly,23-Valent (Pneumovax) 12/18/2017 Td (Age >=7 Years) 04/29/1998 Tdap 08/04/2019,11/09/2008 Typhoid (injectable) 02/14/2009 Yellow Fever 02/14/2009 Family History Medical History Relation Name Comments Good Health Father Good Health Mother Other Neg. No history of l braxton disease Other Other No known family hx of bleeding disorders, blood clots, or anesthesia problems Relation Name Status Comments Father Alive Mother Alive Neg. Other Social History Tobacco Use Types Packs/Day Years Used Date Smoking Tobacco: Never Smokeless Tobacco: Never Tobacco Cessation:Counseling Given: Yes Alcohol Use Standard Drinks/Week Comments No 0 (1 standard drink = 0.6 oz pur e alcohol) PHQ-2 Answer Date Recorded PHQ-2 TOTAL SCORE 0 07/02/2024 Social Connections Answer Date Recorded Do you often feel lonely or isolated from those around you? 0 12/22/2023 Financial Resource Strain Answer Date R ecorded Difficulty of Paying Living Expenses 3 05/01/2023 Difficulty of Paying Living Expenses Not on file 05/01/2023 Food Insecurity Answer Date Recorded Do you worry your food will run out before you are able to buy more? 1 12/22/2023 Transportation Needs Answer Date Record ed Does lack of transportation keep you from medica l appointments? 1 12/22/2023 Does lack of transportation keep you from work, meetings or getting things that you need? 1 12/22/2023 Housing Stability Answer Date Recorded What is your housing situation today? 1 12/22/2023 Interpersonal Safety Answer Date Record ed Are you being hit, kicked, p ushed or yelled at (see row info)? No 02/08/2024 Interpersonal Safety Abuse 12 - 18 Not on file 02/08/2024 Interpersonal Safety Ambulatory Vulnerability No t on file 02/08/2024 Utilities Answer Date Recorded Do you have trouble paying f or utilities (for example, heat, electricity, water, phone)? 1 12/22/2023 Comments No Sex and Gender Information Value Date Recorded Sex Assigned at Not on file Legal Sex Female 5:24 AM BUFFER MACHINE Gender Identity Not on file Sexual Orientation Not on file Occupation Industry Job Start Date Job End Date works at [employer] in the [employer] Not on file Not on file Not on file Obstetrics History Para Term AB IAB SAB Ectopic Multiple Livin g Live Births 0 0 0 0 0 0 0 0 0 0 Last Filed Vital Signs Vital Sign Reading Time Taken Comments Blood Pressure 98/65 02/24/2025 9:39 AM CDT Pulse 62 02/24/2025 9:39 AM CDT Temperature 36.6 C (97.9 F) 10/19/2024 4:18 PM BUFFER MACHINE Respiratory Rate 16 02/14/2024 8:00 AM CDT Oxygen Saturation 98% 02/24/2025 9:39 AM CDT Inhaled Oxygen Concentration - - Weight 51.6 kg (113 lb 12.8 oz) 02/24/2025 9:39 AM CDT Height 139.7 cm (4' 7) 02/24/2025 9:39 AM CDT Body Mass Index 26.45 02/24/2025 9:39 AM CDT Plan of Treatment Upcoming Encounters Date Type Department Care Team (Late st Contact Info) Description 03/03/2025 1:00 PM CDT Ancillary Procedure [facility] [address] [address] 03/22/2025 Cardiac Device Check [facility] [phone] 05/11/2025 8:15 AM CDT Orders Only [facility] [address] [place] [address] [place] 05/13/2025 2:15 PM CDT Office Visit [facility] [address] [facility] [address] [place] [address] 05/13/2025 3:00 PM CDT Office Visit [facility] [address] [facility] [address] [place] [address] Domingo Dudley MD [address] [facility] [address] [place] [address] Health Maintenance Due Date Last Done Comments Hepatitis B series for 19+ ( 3 of 3 - 19+ 3-dose series) 06/29/2014 01/29/2014, 12/28/2013 COVID-19 vaccine series (8 - Moderna risk season) 2024 06/19/2024, 06/03/2023, 06/06/2022, Additional history exists Depression screening for age 12+ 07/03/2025 07/03/2024, 07/03/2024, 07/03/2024, Additional history exists BMI (ht and wt on same day) for age 18+ 02/24/2026 02/24/2025, 07/20/2024, 07/02/2024, Additional history exists Pap test for age 21-65 02/11/2027 02/12/2024, 2023 Tetanus booster 08/04/2029 08/04/2019, 11/2008, 04/29/1998 HIV for age 15-65 Completed 12/15/2015 Tdap Completed 08/04/2019, 11/09/2008 Pneumococcal series for age 6-49 Completed 05/17/20, 12/18/2017 Hepatitis C screening for ag e 18-79 Completed 06/27/2023 Influenza Vaccine Completed 05/08/2024, , 05/17/2022, Additional history exists Medical Devices Implanted Type Area Departmental Shipping Clerk Device Identifier Shelf Expiration Date Model / Serial / Lot Sub-Q Icd Implanted:12/11 by Rodolfo Joyce MD (Quantity not on file) ICD Only [employer] EMBLE A20 9 / [id number] / Description: Cornea Processing Human - [id number] Implanted:Qty: 1 on 11/12/2008 at [facility] Right: Cornea [facility] CORNEA#[id number] 4-OD-C / [id number] / Log [id number] - Dina [id number] Lens Iol - 1 - Lens Iol 24.5 Dpt Tecnis Implanted:Qty: 1 on 04/09/2011 at [facility] Right: Eye [employer] Z9002# / [id number] / Cornea Processing Human - [id number] Implanted:Qty: 1 on 12/10/2011 at [facility] Left: Eye [facility] 12/22/2011 CORNEA# / [id number] / Lens Iol Zcb00 25.0 - [id number] Implanted:Qty: 1 on 04/26/2014 by Kris Kohler MD at [facility] Left: Eye [employer] 02/07/2018 ZCB00# / [id number] / Cornea [place] [facility] - [id number]-C Implanted:Qty: 1 on 03/27/2023 by Hero Contreras MD at [facility] Right: Eye [place] [employer] 04/06/2023 CORNEA / [id number] OS-C / Strip Silcn 0.75x3.5x125 Sty41 Labtician - [id number] Implanted:Qty: 1 on 05/02/2023 by Nasir Durham MD at [facility] Right: Eye [employer] 06/09/2029 [id number] / / [id number] Description:3.5 mm silicone strip Sleeve Silcn 1.00i.D.X2.1mm Od Sty70 S3018 Labtician - [id number] Implanted:Qty: 1 on 05/02/2023 by Nasir Durham MD at [facility] Right: Eye [employer] 06/09/2029 [id number] / / [id number] Description:Silicone sleeve Sys Intrauterine Mirena - [id number] Implanted:Qty: 1 on 02/12/2024 by Angela Banegas MD at [facility] N/A: Uterus [employer] 05/09/2026 [id number] / / [id number] Procedures Procedure Name Priority Date/Time Associated Diagnosis Comments ECHO CNGNTL TTE COMPLETE WO CONTRAST W COLOR W DOPPLER Routine 02/22/2025 4:09 PM CDT Pulmonary hypertension (HC) S/P atrioventricular septal defect repair S/P transcatheter replacement of pulmonary valve AV canal (HC) HEPATIC FUNCTION PANEL Routine 02/22/2025 2:42 PM CDT Pulmonary hypertension (HC) CBC W PLT NO DIFF Routine 02/22/2025 2:4 2 PM CDT Pulmonary hypertension (HC) PRO-BNP Routine 02/22/2025 2:42 PM CDT Pulmonary hypertension (HC) BASIC METABOLIC PANEL Routine 02/22/2025 2:42 PM CDT Pulmonary hypertension (HC) PROTIME-INR Routine 02/22/2025 2:42 PM CDT S/P atrioventricular septal defect repair Anticoagulation monitoring, INR range 2-3 Intracardiac thrombosis, not elsewhere classified SCAN-EYE EXAM 01/19/2025 12:00 AM CDT SCAN-EYE EXAM 12/25/2024 12:00 AM CDT HEMOGLOBIN A1C Routine 12/18/2024 3:31 PM CDT Prediabetes PROTIME-INR Routine 12/18/2024 3:30 PM CDT S/P atrioventricular septal defect repair Anticoagulation monitoring, INR range 2-3 HPV HIGH RISK Timed 02/12/2024 12:20 PM CDT ANTI HCV Routine 06/27/2023 3:56 PM CDT Need for hepatitis C screening test ANTI HIV 1/2 Early AM 12/15/2015 6:25 AM CDT from Last 3 Months or Most Recently Relevant to Health Maintenance Results * ECHO CNGNTL TTE COMPLETE WO CONTRAST W COLOR W DOPPLER (02/22/2025 4:09 PM CDT) AORTIC VALVE MEAN PG 4 mmHg PEAK TR VELOCITY 4.4 m/s LVEDD 4.4 cm EJECTION FRACTION 60 - 65% Anatomical Region Laterality Modality Ultrasound 02/22/2025 3:03 PM CDT Narrative 02/22/2025 4:21 PM CDT ECHOCARDIOGRAM VELVET ROY : 1980 44 years Study Date: 02/22/2025 3:03:33 PM Gender: F BP: 0/0 mmHg Height: 140.00 cm BSA: 1.42 m Weight: 55.00 kg Tech: QUINTON Referring MD: DOMINGO DUDLEY Site: [facility] Reading Location: [facility] Procedure: 2D, Color Doppler and Spectral Doppler. Indication for study: AV canal, PVR Cardiac Rhythm: Regular.Study quality: Good. Other prior studies: Final Impressions: 1. Clinical history of AV canal defect s/p surgical repair in 1983. S/p 25 mm Evergreen valve (Dr. Dunham, 09/20/2021). 2. Normal left ventricular cavity size, normal wall thickness, and normal global systolic function. Calculated EF: 60-65%. 3. Right ventricular cavity size is severely enlarged, global systolic RV function is severely reduced. 4. 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 5. The tricuspid valve is the right sided AV valve, severe regurgitation. 6. S/p 25 mm Evergreen PVR - Vmax 2.1 m/s, peak gradient 18 mmHg, mean gradient 7 mmHg, and trace regurgitation (valvular and paravalvular). 7. The inferior vena cava is dilated, respiratory size variation less than 50%. 8. The aortic valve is trileaflet and sclerotic, no stenosis and trivial regurgitation. 9. No pericardial effusion. Chamber Sizes and Function No resting regional wall motion abnormality visualized. Indeterminate pattern of LV diastolic filling. Left atrial size is not well visualized. Right ventricular cavity size is severely enlarged, global systolic RV function is severely reduced. The right atrium is not well visualized. The sinus of Valsalva is normal sized. The ascending aorta is normal sized. The descending aortic arch is normal in size and patent where imaged. The abdominal aorta is normal in size with antegrade flow where visualized. Valves, RV Pressures and Diastolic Function The aortic valve is trileaflet and sclerotic, no stenosis and trivial regurgitation. The tricuspid valve is a right sided AV valve, severe regurgitation. The tricuspid regurgitant velocity is 4.4 m/s, the estimated right ventricular systolic pressure is 77 mmHg plus right atrial pressure. Masses, Effusion, Shunts There is no pericardial effusion. The inferior vena cava is dilated, respiratory size variation less than 50%. No left to right shunting was detected by limited color flow Doppler interrogation of the interatrial septum. MEASUREMENTS AND CALCULATIONS 2-D Measurements and LV Function: LVID (d) 4.4 cm LV FS% (2D) 32 % LVID (s) 3.0 cm LVOT diameter 1.8 cm IVS (d) 1.0 cm HR 65 bpm LVPW (d) 0.9 cm Ao Sinus 3.3 cm Asc Ao 3.1 cm ASI 2.2 cm/m Diastology: Mitral Tissue Doppler E Peak 0.9 m/s e', Septum 0.05 m/s A Peak 0.6 m/s e', Lateral 0.09 m/s E/A 1.5 E/e' Average 13.74 DT 211 msec Aortic Valve: Vmax 1.3 m/s ROSANNA (V) 1.93 cm VTI 0.29 m ROSANNA (I) 1.79 cm LVOT V max 1.0 m/s Max PG 7 mmHg LVOT VTI 0.21 m Mean PG 4 mmHg SV 52 ml Dim Index 0.75 SV index 36 ml/m CO 3.4 l/min CI 2.4 l/min/m Mitral Valve: MVA 3.6 cm MV P 1/2 61 msec . This study was interpreted by an [facility] accredited facility. Final Procedure Note Elizabeth Lamas, [facility] - 02/22/2025 ECHOCARDIOGRAM VELVET ROY : 1980 44 years Study Date: 02/22/2025 3:03:33 PM Gender: F BP: 0/0 mmHg Height: 140.00 cm BSA: 1.42 m Weight: 55.00 kg Tech: QUINTON Referring MD: DOMINGO DUDLEY Site: [facility] Reading Location: [facility] Procedure: 2D, Color Doppler and Spectral Doppler. Indication for study: AV canal, PVR Cardiac Rhythm: Regular.Study quality: Good. Other prior studies: Final Impressions: 1. Clinical history of AV canal defect s/p surgical repair in 1983. S/p25 mm Evergreen valve (Dr. Dunham, 09/20/2021). 2. Normal left ventricular cavity size, normal wall thickness, and normalglobal systolic function. Calculated EF: 60-65%. 3. Right ventricular cavity size is severely enlarged, global systolic RVfunction is severely reduced. 4. The mitral vavle is the left sided AV valve and is cleft,moderate-severe regurgitation. 5. The tricuspid valve is the right sided AV valve, severeregurgitation. 6. S/p 25 mm Evergreen PVR - Vmax 2.1 m/s, peak gradient 18 mmHg, meangradient 7 mmHg, and trace regurgitation (valvular and paravalvular). 7. The inferior vena cava is dilated, respiratory size variation lessthan 50%. 8. The aortic valve is trileaflet and sclerotic, no stenosis and trivialregurgitation. 9. No pericardial effusion. Chamber Sizes and Function No resting regional wall motion abnormality visualized. Indeterminatepattern of LV diastolic filling. Left atrial size is not well visualized. Right ventricular cavity size isseverely enlarged, global systolic RV function is severely reduced. Theright atrium is not well visualized. The sinus of Valsalva is normalsized. The ascending aorta is normal sized. The descending aortic arch isnormal in size and patent where imaged. The abdominal aorta is normal insize with antegrade flow where visualized. Valves, RV Pressures and Diastolic Function The aortic valve is trileaflet and sclerotic, no stenosis and trivialregurgitation. The tricuspid valve is a right sided AV valve, severeregurgitation. The tricuspid regurgitant velocity is 4.4 m/s, theestimated right ventricular systolic pressure is 77 mmHg plus right atrialpressure. Masses, Effusion, Shunts There is no pericardial effusion. The inferior vena cava is dilated,respiratory size variation less than 50%. No left to right shunting wasdetected by limited color flow Doppler interrogation of the interatrialseptum. MEASUREMENTS AND CALCULATIONS 2-D Measurements and LV Function: LVID (d) 4.4 cm LV FS% (2D) 32 % LVID (s) 3.0 cm LVOT diameter 1.8 cm IVS (d) 1.0 cm HR 65 bpm LVPW (d) 0.9 cm Ao Sinus 3.3 cm Asc Ao 3.1 cm ASI 2.2 cm/m Diastology: Mitral Tissue Doppler E Peak 0.9 m/s e', Septum 0.05 m/s A Peak 0.6 m/s e', Lateral 0.09 m/s E/A 1.5 E/e' Average 13.74 DT 211 msec Aortic Valve: Vmax 1.3 m/s ROSANNA (V) 1.93 cm VTI 0.29 m ROSANNA (I) 1.79 cm LVOT V max 1.0 m/s Max PG 7 mmHg LVOT VTI 0.21 m Mean PG 4 mmHg SV 52 ml Dim Index 0.75 SV index 36 ml/m CO 3.4 l/min CI 2.4 l/min/m Mitral Valve: MVA 3.6 cm MV P 1/2 61 msec . This study was interpreted by an [facility] accredited facility. Final us Domingo Dudley MD ECHO ORD Final Res ult * CBC W PLT NO DIFF (02/22/2025 2:42 PM CDT) WHITE BLOOD COUNT 5.3 4.5 - 11.0 thou/cu mm 02/22/2025 2:57 PM CDT [facility] RED BLOOD COUNT 4.01 4.00 - 5.20 mil/cu mm 02/22/2025 2:57 PM CDT [facility] HEMOGLOBIN 13.1 12.0 - 16.0 g/dL 02/22/2025 2:57 PM CDT [facility] HEMATOCRIT 39.6 33.0 - 51.0 % 02/22/2025 2:57 PM CDT [facility] MCV 99 80 - 100 fL 02/22/2025 2:57 PM CDT [facility] MCH 32.7 26.0 - 34.0 pg 02/22/2025 2:57 PM CDT [facility] MCHC 33.1 32.0 - 36.0 g/dL 02/22/2025 2:57 PM CDT [facility] [facility] RDW 14.1 11.5 - 15.5 % 02/22/2025 2:57 PM CDT [facility] PLATELET COUNT 325 140 - 440 thou/cu mm 02/22/2025 2:57 PM CDT [facility] MPV 10.5 6.5 - 11.0 fL 02/22/2025 2:57 PM CDT [facility] NRBC 0.0 % 02/22/2025 2:57 PM CDT [facility] ABS NRBC 0.0 thou /cu mm 02/22/2025 2:57 PM CDT [facility] Blood BLOOD SPECIMEN / Unknown Venipuncture / Unknown 02/22/2025 2:42 PM CDT 02/22/2025 2:48 PM CDT us Domingo Dudley MD HEMATOLOGY Final Res ult [facility] [address] [place] [address], [place] * (ABNORMAL) PROTIME-INR [[id number]] - Standing Order (02/22/2025 2:42 PM CDT) Only the most recent of2 resultswithin the time period is included. INR 2.5(H) <1.3 02/22/2025 2:58 PM CDT [facility] PROTIME 29.0(H) 10.6 - 12.4 sec 02/22/2025 2:58 PM CDT [facility] Blood BLOOD SPECIMEN / Unknown Venipuncture / Unknown 02/22/2025 2:42 PM CDT 02/22/2025 2:48 PM CDT Narrative [facility] - 02/22/2025 2:58 PM CDT Therapeutic Range 2.0-3.0 for most anticoagulated patients 2.5-3.5 or 4.0 for high risk patients The INR is only used for patients on stable oral anticoagulant therapy. It makes no significant contribution to the diagnosis or treatment of patients whose Protime is prolonged for other reasons. INR results are increased when heparin levels exceed 1.0 U/mL, which corresponds to an aPTT >125 seconds if the patient is on UFH. us Essie Greco MD HEMATOLOGY Final Resul t Performing Organization Address City/[facility]/ZIP Co de Phone Number [facility] [employer] [facility] [address] [place] [id number], [place] * (ABNORMAL) PRO-BNP (02/22/2025 2:42 PM CDT) PRO-BNP 1,436(H) <125 pg/mL 02/22/2025 3:37 PM CDT [facility] Blood BLOOD SPECIMEN / Unknown Venipuncture / Unknown 02/22/2025 2:42 PM CDT 02/22/2025 2:48 PM CDT [facility] - 02/22/2025 3:37 PM CDT The following cut-points have been suggested for the use of proBNP for the diagnostic evaluation of heart failure (HF) in patient with acute dyspnea. Patients with eGFR >= 60 Diagnosis (rule in CHF) <50 Years Old 450 pg/mL 50 - 75 Years Old 900 pg/mL >75 Years Old 1800 pg/mL Exclusion (rule out CHF) Age Independent 300 pg/mL A cutoff of 1200 pg/mL for patients with an eGFR <60 yields a diagnostic sensitivity of 89% and specificity of 72% for acute congestive heart failure. us Domingo Dudley MD SEND OUTS Final Res ult Performing Organization Address City/[facility]/ZIP Co de Phone Number [facility] [facility] [address] [place] [id number], [place] * (ABNORMAL) HEPATIC FUNCTION PANEL (02/22/2025 2:42 PM CDT) ALBUMIN 4.2 4.0 - 4.9 g/dL 02/22/2025 3:35 PM CDT [facility] [employer] [facility] PROTEIN,TOTAL 7.3 6.0 - 8.0 g/dL 02/22/2025 3:35 PM CDT [facility] BILIRUBIN,TOTAL 0.2 0.0 - 1.2 mg/dL 02/22/2025 3:35 PM CDT [facility] BILIRUBIN,DIRECT 0.1 0.0 - 0.2 mg/dL 02/22/2025 3:35 PM CDT [facility] BILIRUBIN,INDIRE CT 0.1(L) 0.2 - 0.8 mg/dL 02/22/2025 3:35 PM CDT [facility] ALK PHOSPHATASE 125(H) 35 - 104 IU/L 02/22/2025 3:35 PM CDT [facility] ALT (SGPT) 17 10 - 35 IU/L 02/22/2025 3:35 PM CDT [facility] AST (SGOT) 29 10 - 35 IU/L 02/22/2025 3:35 PM CDT [facility] Blood BLOOD SPECIMEN / Unknown Venipuncture / Unknown 02/22/2025 2:42 PM CDT 02/22/2025 2:48 PM CDT us Domingo Dudley MD CHEMISTRY Final Res ult [facility] [address] [place] [address], * (ABNORMAL) BASIC METABOLIC PANEL (02/22/2025 2:42 PM CDT) SODIUM 139 136 - 145 mmol/L 02/22/2025 3:35 PM CDT [facility] POTASSIUM 3.9 3.5 - 5.1 mmol/L 02/22/2025 3:35 PM CDT [facility] CHLORIDE 102 98 - 107 mmol/L 02/22/2025 3:35 PM CDT [facility] CO2,TOTAL 26 22 - 29 mmol/L 02/22/2025 3:35 PM CDT [facility] ANION GAP 11 5 - 18 02/22/2025 3:35 PM CDT [facility] GLUCOSE 83 70 - 99 mg/dL 02/22/2025 3:35 PM CDT [facility] CALCIUM 8.8 8.8 - 10.4 mg/dL 02/22/2025 3:35 PM CDT [facility] Comment: Reference ranges for this test were updated on 07/14/2024 to reflect our healthy population more accurately. Reference range changes are not retroactively applied to results, but previous results using the same methodology can be interpreted in the context of the new reference range. BUN 19 6 - 20 mg/dL 02/22/2025 3:35 PM CDT [facility] CREATININE 0.95(H) 0.50 - 0.90 mg/dL 02/22/2025 3:35 PM CDT [facility] BUN/CREAT RATIO 20 10 - 20 3:35 PM CDT [facility] eGFR 76(L) >90 mL/min/1. 73m2 02/22/2025 3:35 PM CDT [facility] Comment:As of 2021, eG FR is calculated by the CKD-EPI creatinine equation without race adjustment. eGFR can be influenced by muscle mass, exercise, and diet. The reported eGFR is an estimation only and is only applicable if the renal function is stable. Blood BLOOD SPECIMEN / Unknown Venipuncture / Unknown 02/22/2025 2:42 PM CDT 02/22/2025 2:48 PM CDT us Domingo Dudley MD CHEMISTRY Final Res ult [facility] [address] [place] [address], [place] * SCAN-EYE EXAM (01/19/2025 12:00 AM CDT) us Scanner OTHER Final Result * SCAN-EYE EXAM (12/25/2024 12:00 AM CDT) us Scanner OTHER Final Result * (ABNORMAL) HEMOGLOBIN A1C (12/18/2024 3:31 PM CDT) HEMOGLOBIN A1C 5.7(H) <5.7 % of total Hgb [facility] raisa Epperson Comment: For someone without known diabetes, a hemoglobin A1c value between 5.7% and 6.4% is consistent with prediabetes and should be confirmed with a follow-up test. For someone with known diabetes, a value <7% indicates that their diabetes is well controlled. A1c targets should be individualized based on duration of diabetes, age, comorbid conditions, and other considerations. This assay result is consistent with an increased risk of diabetes. Currently, no consensus exists regarding use of hemoglobin A1c for diagnosis of diabetes for children. Blood BLOOD SPECIMEN / Unknown 12/18/2024 3:31 PM CDT 12/18/2024 3:31 PM CDT Essie Greco MD CHEMISTRY Final Resul t [employer] [facility] [address] [place] [address], [facility] [address] [place] [address] * HPV HIGH RISK (02/12/2024 12:20 PM CDT) TYPE 16 Negative Negative 02/14/2024 4:30 PM CDT [facility] TYPE 18 Negative Negative 02/14/2024 4:30 PM CDT [facility] OTHER HIGH RISK TYPES Negative Negative 02/14/2024 4:30 PM CDT [facility] Other (Cervical) Non-Blood / Unknown 02/12/2024 12:20 PM CDT 02/12/2024 2:18 PM CDT Narrative [facility] - 02/14/2024 4:30 PM CDT HPV types 16, 18, 31, 33, 35, 39, 45, 51, 52, 56, 58, 59, 66 and 68 DNA were undetectable or below the pre-set threshold. Methodology: Raghav Felix 4800 HPV Test us Angela Banegas MD MICROBIOLOGY Final Result Performing Organization Address [facility] Co de Phone Number [facility] [address] [place] [address], [place] * ANTI HCV (06/27/2023 3:56 PM CDT) Pathologist [facility] HEPATITIS C ANTIBODY Non-Reacti ve Non-React corky 06/28/2023 3:47 PM CDT [facility] Comment:Please note, per www .CDC.gov: If a patient is known to be at high risk of HCV infection, or is symptomatic, and the physician's suspicion of HCV infection is high, HCV RNA testing is often employed and is of diagnostic value, even after an initial negative anti-HCV test result. Blood BLOOD SPECIMEN / Unknown Butterfly / Unknown 06/27/2023 3:56 PM CDT 06/27/2023 3:58 PM CDT us Essie Greco MD SEND OUTS Final Resul t Performing Organization Address [facility] Co de Phone Number [facility] [address] [place] [address], [place] * ANTI HIV 1/2 (12/15/2015 6:25 AM CDT) Pathologist [facility] HIV-1/HIV-2 ANTIBODY Non-Reacti ve Non-Reacti ve 12/15/2015 11:11 AM CDT [facility] Blood specimen (specimen) BLOOD SPECIMEN / Unknown Non-Lab Venipuncture / Unknown 12/15/2015 6:25 AM CDT 12/15/2015 6:47 AM CDT Narrative [facility] - 12/15/2015 11:11 AM CDT HIV-1 p24 and HIV-1/HIV-2 Ab not detected us Berhane Saunders MD SEND OUTS Final Resu lt [facility] [address] [place] [address], [place] from Last 3 Months or Most Recently Relevant to Health Maintenance Insurance MEDICARE PART B HB ONLY MEDICAID MEDICARE [place] ONLY MEDICARE PART A HB ONLY MEDICARE PROVIDER BASED MEDICAID MEDICAID Member Subscriber Plan / Payer (Ef fective 2010-Present) Name:Velvet Roy Relation to Subscriber:Self Name:Velvet Roy Payer ID:Not on file Group ID:Not on file Type:Not on file Address: [address] [id number] [place] MEDICARE PPS Advance Directives * Full Code (Latest Code Status on File) Date Activated Date Inactivated Comments 02/08/2024 5:08 PM 02/14/2024 2:10 PM Question Answer Comments Code Status Discussion: Reviewed Preferences * Full Code Date Activated Date Inactivated Comments 12/20/2023 10:26 AM 12/25/2023 5:27 PM Question Answer Comments Code Status Discussion: Reviewed Preferences * Full Code Date Activated Date Inactivated Comments 12/10/2023 9:25 PM 12/20/2023 10:26 AM Question Answer Comments Code Status Discussion: Unable to Assess Preferences, Provider to review later * Full Code Date Activated Date Inactivated Comments 07/03/2023 1:27 PM 07/08/2023 11:51 AM Question Answer Comments Code Status Discussion: Other * Full Code Date Activated Date Inactivated Comments 05/02/2023 1:53 PM 05/02/2023 10:59 PM Question Answer Comments Code Status Discussion: Unable to Assess Preferences, Provider to review later Care Teams Associate Director Regulatory Affairs Relationship Specialty Start Date End Date Essie Greco MD [address] [place] [address] PCP - General Family Practice 08/07/19 Essie Greco MD [address] [place] [address] Family Practice 08/07/19 Domingo Dudley MD [address] [address] Cardiology Cardiovascular Disease 07/15/18 Nurses, Advanced Heart Failure [address], [place] [address] Heart Failure Care Coordination Commercial Loan Coordinator 11/25/18 Rodolfo Joyce MD [address] [facility] [address] [place] [address] Adult Congenital Heart Disease Program Cardiology - Electrophysiology 09/03/19
== END 2025-03-02 21:23 | disposition home or self-care (01) ==
LOC: SLEEP 21:22
PROVIDERS: PCP Family Medicine; Visit Provider Internal Medicine
DX: G47.33 Obstructive sleep apnea (adult) (pediatric) (principal); R09.02 Hypoxemia
CPT/HCPCS: 95811